=== PATIENT | female | born 1995 | race American Indian/Alaskan Native ===

== ENCOUNTER 2018-07-27 12:01 | Emergency (ER) | payer OTHER ==
[2018-07-27 12:20] VITALS: BP 144/84
--- NOTE | 2018-07-27 12:22 | Emergency Department Report ---
Blank Doc - Documentation Documentation: 22 y/o presents ed c/o 3 week history of sore throat (tonsils removed) and also having a reemergence of axilla abscess sensation to right axilla. History of hidradenitis with surgical fixation 8 years ago. Plan. Evaluate for I&D treat pharyngitis
[2018-07-27] MEDS ORDERED: IBUPROFEN PO ONE (13:29)
--- NOTE | 2018-07-27 14:47 | XRay Report ---
ROUTINE CHEST, TWO VIEWS: HISTORY: Cough. The trachea, heart, mediastinal contour, lung tejada and bony thorax are unremarkable. IMPRESSION: Unremarkable chest x-ray.
--- NOTE | 2018-07-27 15:13 | Emergency Department Report ---
HPI - General Chief Complaint: Upper Respiratory Infection Time Seen by Provider: 07/27/18 12:19 - HPI HPI: 22-year-old female presents complaining of right armpit pain and swelling past month. Patient states she has a history of vaginitis appreciated there and has not had boil over years. Patient states she recently went to the gym about a month ago and that's when that appeared. Patient is also stating she is out of cold for the past month. SHe states dry nonproductive cough and body aches. ED Past Medical Hx - Past Medical History Hx Hypertension: Yes Additional medical history: hydradentitis supprativa - Surgical History Additional Surgical History: tonsilectomy - Social History Smoking Status: Never Smoker Substance Use Type: None - Medications Home Medications: Home Medications Medication Instructions Recorded Confirmed Last Taken Type Benzonatate [Tessalon Perles] 100 mg PO Q8HR #30 capsule 07/27/18 Unknown Rx Clindamycin [Clindamycin CAP] 300 mg PO Q8H #21 cap 07/27/18 Unknown Rx Ibuprofen [Motrin 800 MG tab] 800 mg PO TID #30 tablet 07/27/18 Unknown Rx Sulfamethoxazole/Trimethoprim 1 each PO BID #10 tablet 07/27/18 Unknown Rx [Bactrim DS TAB] ED Review of Systems ROS: Stated complaint: SOB/SORE THROAT Other details as noted in HPI Comment: All other systems reviewed and negative Physical Exam - Physical Exam Vital Signs: Vital Signs 07/27/18 12:16 Temperature 98.3 F Pulse Rate 94 H Respiratory 20 Rate Blood Pressure 144/84 O2 Sat by Pulse 100 Oximetry Physical Exam: GENERAL: Alert and oriented x3, no apparent distress, Normal Gait, atraumatic. HEAD: Head is normocephalic and a-traumatic. LUNGS: Symetrical with respiration, No wheezing, no rales or crackles, CTAB. HEART: S1, S2 present, regular rate and rhythm without murmur, no rubs, no gallops. Non tender to palpation BACK: Full range of motion, no spinal tenderness, nontender to palpation. EXTREMITIES/MUSCULOSKELETAL: No cyanosis, clubbing, rash, lesions or edema. Right axilla mildly tender to palpation, mildly cellulitis, raised lesion, nonfluctuant NEUROLOGIC: The patient is cooperative with no focal neurologic deficits. SKIN: Warm and dry, No lesions, No ulceration or induration present. ED Course Vital Signs 07/27/18 12:16 Temperature 98.3 F Pulse Rate 94 H Respiratory 20 Rate Blood Pressure 144/84 O2 Sat by Pulse 100 Oximetry ED Medical Decision Making - Radiology Data Radiology results: report reviewed, image reviewed Fluoro Time In Minutes: ROUTINE CHEST, TWO VIEWS: HISTORY: Cough. The trachea, heart, mediastinal contour, lung tejada and bony thorax are unremarkable. IMPRESSION: Unremarkable chest x-ray. Transcribed By: TTR Dictated By: GUILLAUME PADGETT JR, MD Electronically Authenticated By: GUILLAUME PADGETT JR, MD Signed Date/Time: 07/27/18 2618 - Medical Decision Making 22-year-old female presents with a the right axilla cellulitis. Due to patient complaining of skilled nursing cough x-ray was obtained. X-ray shows no acute findings Discussed this with the patient. Patient was sent on antibiotics and pain medications with instructions for heat compression 3 times a day to the armpit. Vital signs are normal patient is in no acute distress. Critical care attestation.: If time is entered above; I have spent that time in minutes in the direct care of this critically ill patient, excluding procedure time. ED Disposition Clinical Impression: Hidradenitis axillaris, Bronchitis Disposition: [id number] TO HOME OR SELFCARE Is pt being admited?: No Does the pt Need Aspirin: No Condition: Stable Instructions: Chronic Bronchitis (ED), Abscess (ED), Heat Pack Application (ED) Additional Instructions: Make sure to follow up with the primary care physician as discussed. Take all your medications as you've been prescribed. If you have any worsening symptoms or develop new symptoms please return to ED immediately. Prescriptions: Benzonatate [Tessalon Perles] 100 mg PO Q8HR #30 capsule Clindamycin [Clindamycin CAP] 300 mg PO Q8H #21 cap Ibuprofen [Motrin 800 MG tab] 800 mg PO TID #30 tablet Sulfamethoxazole/Trimethoprim [Bactrim DS TAB] 1 each PO BID #10 tablet Referrals: TU ANAND MD [Primary Care Provider] - 3-5 Days Forms: Work/School Release Form(ED) Time of Disposition: 15:16
== END 2018-07-27 15:27 | disposition home or self-care (01) ==
LOC: ED 12:01
DX: J40 Bronchitis, not specified as acute or chronic (principal); L73.2 Hidradenitis suppurativa; I10 Essential (primary) hypertension; Z90.89 Acquired absence of other organs; Z91.040 Latex allergy status; Z91.018 Allergy to other foods
CPT/HCPCS: 71046; 99283